=== PATIENT | male | born 1990 | race Two or more races ===

== ENCOUNTER 2017-04-24 01:09 | Emergency (ER) | payer OTHER, MEDICAID ==
[~2017-04-24] VITALS: Ht 172.7 cm; Wt 81.6 kg
--- NOTE | 2017-04-24 01:22 | NUR ---
PT TO ER [facility] AND [employer] FOR MEDICAL CLEARANCE. PT HAS ABRASION TO LEFT KNEE AND ARM S/P ARREST. PER EMS THEY SUSPECT PT IS UNDER THE INFLUENCE OF SUBSTANCE. PT CALM AND COOPERATIVE UPON ARRIVAL. PT TO ER BED, CHANGED INTO GOWN AND CONNECTED TO MONITOR. HR NOTED AT 128, DR CASTRO NOTIFIED. PT DENIES ANY CHEST PAIN OR SOB. BREATHS EQUAL AND UNLABORED. WILL CONT TO MONITOR PT.
[2017-04-24] MEDS ORDERED: LORAZEPAM INJ 2 MG/ML VIAL IV ONE (01:30)
[2017-04-24] MEDS ORDERED: IV NS 0.9% 1,000 ML BAG IV ONE (01:30)
[2017-04-24] MEDS ORDERED: LORAZEPAM INJ 2 MG/ML VIAL ONE (01:38)
--- NOTE | 2017-04-24 01:48 | NUR ---
PT MEDICATED ORDERED.
[2017-04-24 01:50] LABS: BASOPHILS # (AUTO) 0.1 /CMM (0.0-0.2); BASOPHILS % (AUTO) 0.6 % (0.0-2.0); EOSINOPHILS # (AUTO) 0.1 /CMM (0.0-0.7); EOSINOPHILS % (AUTO) 0.4 % (0.0-6.0); HEMATOCRIT 46 % (39-51); HEMOGLOBIN 15.9 g/dL (13.5-17.5); LYMPHOCYTES # (AUTO) 1.3 /CMM (0.8-4.8); MEAN CORPUSCULAR HEMOGLOBIN 30 PG (26.0-33.0); MEAN CORPUSCULAR HGB CONC 35 g/dl (31.0-36.0); MEAN CORPUSCULAR VOLUME 85 fL (80-96); MONOCYTES # (AUTO) 0.9 /CMM (0.1-1.30); MONOCYTES % (AUTO) 5.9 % (2.0-12.0); NEUTROPHILS # (AUTO) 12.6 /CMM (1.8-8.9); NEUTROPHILS % (AUTO) 84.1 % (43.0-81.0); PLATELET COUNT (AUTO) 464 /CMM (150-450); RDW COEFFICIENT OF VARIATION 12.9 (11.5-15.0); RED BLOOD CELL COUNT(AUTO) 5.38 MIL/uL (4.5-6.0)
[2017-04-24 02:00] LABS: CALCIUM, SERUM 8.9 mg/dL (8.5-10.1); CREATININE 1.5 mg/dL (0.6-1.3); POTASSIUM 3.7 mmol/L (3.5-5.1)
[2017-04-24] MEDS ORDERED: TDAP [DIPH/PERTUSSIS/TET] 0.5 ML VIAL IM ONE ×2 (02:30→02:35)
[2017-04-24 02:40] LABS: CREATINE KINASE MB 3.8 ng/mL (0-3.6)
--- NOTE | 2017-04-24 03:05 | NUR ---
Patient discharged to custody in stable condition. Written and verbal after care instructions given. Patient verbalizes understanding of instruction. ambulatory with a steady gait
[2017-04-24 03:06] VITALS: BP 119/66
== END 2017-04-24 03:10 ==
LOC: ER 01:10 → EDBD 01:10 → ER 03:10
DX: S00.81XA Abrasion of other part of head, initial encounter (principal); S60.811A Abrasion of right wrist, initial encounter; S80.212A Abrasion, left knee, initial encounter; E86.0 Dehydration; Z23 Encounter for immunization; F19.10 Other psychoactive substance abuse, uncomplicated; W01.198A Fall on same level from slipping, tripping and stumbling with subsequent striking against other object, initial encounter; Y93.89 Activity, other specified; Y92.89 Other specified places as the place of occurrence of the external cause; Y99.9 Unspecified external cause status
CPT/HCPCS: 36415; 80048-TC; 82550-TC; 82553-TC; 85025-TC; 90715; A4606; J2060; J7030; Z7610